=== PATIENT | male | born 1995 | race African-American/Black ===

== ENCOUNTER 2024-07-12 20:59 | Emergency (ER) | payer OTHER, SELFPAY ==
[2024-07-12] VITALS (19 sets, daily range): BP systolic 113–155; BP diastolic 67–105; PULSE 79–96; RESP 16–18; TEMP 36.6; O2SAT 92–97; BMI 42.1
--- OUTSIDE RECORDS SUMMARY | 2024-07-12 21:02 | XMS_ITS | Clinical Summary ---
Author Organization [facility] Address [address] [address] Phone Care Team Providers Care Cash Applications Manager Name Role Phone Elsewhere, Pcp Primary Care Provider Unavailabl e Allergies No known active allergies Social History Tobacco Use Types Packs/Day Years Used Date Smoking Tobacco: Never Assessed Sex and Gender Information Value Date Recorded Sex Assigned at Not on file Legal Sex Male 12:48 PM CDT Gender Identity Not on file Sexual Orientation Not on file Last Filed Vital Signs Vital Sign Reading Time Taken Comments Blood Pressure 107/53 07/03/2017 5:01 PM CDT Pulse 77 07/03/2017 5:01 PM CDT Temperature 37.2 C (98.9 F) 07/03/2017 12:51 PM CDT Respiratory Rate 15 07/03/2017 5:01 PM CDT Oxygen Saturation 99% 07/03/2017 5:01 PM CDT Inhaled Oxygen Concentration - - Weight 127 kg (280 lb) 07/03/2017 12:51 PM CDT Height 188 cm (6' 2) 07/03/2017 12:51 PM CDT Body Mass Index 35.95 07/03/2017 12:51 PM CDT Plan of Treatment Not on file Insurance BCBS OF [facility] OUT OF STATE Care Teams Cash Applications Manager Relationship Specialty Start Date End Date Elsewhere, Pcp PCP - General 12/07/20
--- OUTSIDE RECORDS SUMMARY | 2024-07-12 21:02 | XMS_ITS | Clinical Summary ---
Author Organization [employer] [facility] Address [address] [place] [address] Care Team Providers Care Police Matron Name Role Phone Pcp, No Primary Care Provider Unavailabl e Pcp, No Unavailable Unavailable Allergies No known active allergies Medications No known medications Active Problems Problem Noted Date Diagnosed Date Family history of diabetes mellitus in father Immunizations Immunization Administration Dates Next Due Td (Age >=7 Years) 08/27/2005 Family History Medical History Relation Name Comments Diabetes Father Hypertension Father Diabetes Mother Hypertension Mother Cancer Paternal Grandfather rare ca ncer took his life Diabetes Paternal Grandmother Stroke Paternal Grandmother Relation Name Status Comments Father Alive Mother Alive Paternal Grandfather Paternal Grandmother Social History Tobacco Use Types Packs/Day Years Used Date Smoking Tobacco: Some Days Smokeless Tobacco: Never Tobacco Cessation:Ready to Q uit: Yes; Counseling Given: Yes Comments:maybe 1 every other day. 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 Gender Identity Not on file Sexual Orientation Not on file Obstetrics History Last Filed Vital Signs Vital Sign Reading Time Taken Comments Blood Pressure 103/65 07/01/2021 7:04 AM CDT Pulse 97 07/01/2021 7:04 AM CDT Temperature 36.9 C (98.4 F) 07/01/2021 7:04 AM CDT Respiratory Rate 12 12/13/2018 11:15 AM CDT Oxygen Saturation 97% 07/01/2021 7:04 AM CDT Inhaled Oxygen Concentration - - Weight 150.6 kg (332 lb) 07/01/2021 7:04 AM CDT Height 188 cm (6' 2) 07/01/2021 7:04 AM CDT Body Mass Index 42.63 07/01/2021 7:04 AM CDT Plan of Treatment Health Maintenance Due Date Last Done Comments Tdap 2004 Depression screening for age 12+ 2005 HIV for age 15-65 2008 Hepatitis C screening for ag e 18-79 12/11/2011 Tetanus booster 08/28/2015 08/27/2005 BMI (ht and wt on same day) for age 18+ 07/01/2022 07/01/2021, 12/13/2018, 07/06/2017 COVID-19 vaccine series (2023- season) 2023 Influenza Vaccine (Season Ended) 2024 Pneumococcal series for age 6-49 Aged Out No longer eligible b ased on patient's age to complete this topic Insurance [place] [employer] OF NON-[facility] [address] [place] [id number] Care Teams Police Matron Relationship Specialty Start Date End Date Pcp, No . PCP - General 12/10/18 Pcp, No . 12/10/18
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
[2024-07-12 21:37] LABS: Appearance Urine Clear (Clear); Bilirubin Urine Negative (Negative); Blood Urine Negative (Negative); Color Urine Yellow (Yellow); Glucose Urine Negative (Negative); Ketones Urine Negative (Negative); Leukocyte Esterase Urine Negative (Negative); Nitrite Urine Negative (Negative); Protein Urine Negative (Negative); Specific Gravity Urine 1.025 (1.000-1.030); Urobilinogen Urine 0.2 (0.2-1.0); pH Urine 5.5 (5.0-8.5)
--- OUTSIDE RECORDS SUMMARY | 2024-07-12 21:46 | XMS_ITS | Clinical Summary ---
Author Organization [facility] Address [address] [address] Phone Care Team Providers Care Credit Risk Analytics Manager Name Role Phone Elsewhere, Pcp Primary [...] Treatment Not on file Insurance BCBS OF [facility] OUT OF STATE Care Teams Credit Risk Analytics Manager Relationship Specialty Start Date End Date Elsewhere, Pcp PCP - General 12/07/20
--- OUTSIDE RECORDS SUMMARY | 2024-07-12 21:46 | XMS_ITS | Clinical Summary ---
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 PCP - General 12/10/18 Pcp, No . 12/10/18
[2024-07-12 21:57] LABS: Bacteria Urine Few; Mucus Urine Moderate; RBC Urine 0-2 (0-2); Squamous Epithelial Cell Urine Few (None-Few); WBC Urine 0-2 (0-5)
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
[2024-07-12] MEDS: IBUPROFEN 400 MG TABLET 800 MG PO (22:22)
[2024-07-13 00:02] VITALS: BP 121/62; PULSE 89; RESP 18; O2SAT 95
[2024-07-13 00:05] VITALS: TEMP 36.6
[2024-07-13 00:13] VITALS: BP 130/67; PULSE 95; RESP 18; TEMP 36.6
== END 2024-07-13 00:15 | disposition home or self-care (01) ==
PROVIDERS: Emergency Provider Family Medicine
DX: S16.1XXA Strain of muscle, fascia and tendon at neck level, initial encounter (principal); V43.52XA Car driver injured in collision with other type car in traffic accident, initial encounter; S80.02XA Contusion of left knee, initial encounter
CPT/HCPCS: 72125; 73562; 73650; 81001; 87086; 94761; 99284; 99285; 99291; A9270

== ENCOUNTER 2024-07-28 11:32 | Emergency (ER) | payer OTHER, SELFPAY ==
--- OUTSIDE RECORDS SUMMARY | 2024-07-28 11:34 | XMS_ITS | Clinical Summary ---
Author Organization [facility] Address [address] [address] Phone Care Team Providers Care Supply Chain Business Analyst Name Role Phone Elsewhere, Pcp Primary Care [...] Treatment Not on file Insurance BCBS OF [facility] Commercial Address: [address] [address] [facility] OUT OF STATE Care Teams Supply Chain Business Analyst Relationship Specialty Start Date End Date Elsewhere, Pcp PCP - General 12/07/20
--- OUTSIDE RECORDS SUMMARY | 2024-07-28 11:34 | XMS_ITS | Clinical Summary ---
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 PCP - General 12/10/18 Pcp, No . 12/10/18
[2024-07-28 11:42] VITALS: BP 144/75; PULSE 102; RESP 16; TEMP 37.3; O2SAT 98; BMI 41.7
--- NOTE | 2024-07-28 12:10 | CRLHL7_ITS ---
For Patients: As a result of the Century Cures Act, medical imaging exams and procedure reports are released immediately into your electronic medical record. You may view this report before your referring provider. If you have questions, please contact your health care provider. INDICATION: Peritonsillar abscess TECHNIQUE: CT of the neck soft tissues obtained after intravenous administration of 149 mL Isovue 370 contrast agent. Coronal and sagittal reconstructions are included. COMPARISON: None FINDINGS: Diffuse fullness and striated enhancement of the bilateral palatine tonsils and nasopharyngeal adenoids. No focal/drainable or peripherally enhancing tonsillar/peritonsillar fluid collection. No retropharyngeal edema. Mild oropharyngeal airway narrowing. The nasopharyngeal and laryngeal airway are patent. Bilateral reactive cervical lymphadenopathy, the most pronounced level 2. Included orbits and intracranial structures are unremarkable for technique. No evidence of obstructive paranasal sinus disease or significant mastoid effusion. Major salivary glands and thyroid gland are unremarkable. Major vascular structures of the neck demonstrate expected contrast opacification. No aggressive osseous lesions. No significant spinal canal stenosis. No focal mass or consolidation within the included lung apices. IMPRESSION: 1. Acute tonsillitis/pharyngitis, with reactive cervical lymphadenopathy and mild oropharyngeal airway narrowing. 2. No tonsillar/peritonsillar abscess. Please note that all CT scans at this facility use dose modulation, iterative reconstruction, and/or weight-based dosing when appropriate to reduce radiation dose to as low as reasonably achievable. Dictated by Marzena Degroot MD @ 07/28/2024 1:16:26 PM (Electronically Signed)
--- NOTE | 2024-07-28 12:10 | ED_ITS ---
HPI - General Adult General Chief complaint: Sore Throat Stated complaint: possible strep throat Time Seen by Provider: 07/28/24 11:35 History of Present Illness HPI narrative: this 28-year-old male comes in reporting sore throat for the past couple days. He arrives with a muffled voice. He does not report any fevers. He reports lots of pain when attempting to swallow. He does not have much coughing. Related Data Previous Rx's ?Medication ?Instructions ?Recorded amoxicillin 875 mg-potassium 1 tab PO BID #14 tabs 07/28/24 clavulanate 125 mg tablet ketorolac 10 mg tablet 10 mg PO TID 5 days #15 tabs 07/28/24 Allergies Allergy/AdvReac Type Severity Reaction Status Date / Time No Known Drug Allergies Allergy Verified 07/28/24 13:11 Review of Systems Status of ROS: Reports: 10 or more systems reviewed and unremarkable except as noted in History and below Narrative: Constitutional: No fevers, no weight gain or loss. Eyes: No discharge. No vision changes. HENT: No congestion, no ear pain. Sore throat with muffled voice. Cardiovascular: No chest pain, no palpitations. Respiratory: No shortness of breath, no wheezes, no cough. Gastrointestinal: No abdominal pain, no vomiting, no diarrhea. Genitourinary: No dysuria, no hematuria. Musculoskeletal: Normal range of motion. Skin: No rashes, no pruritis. Neurological: No dizziness, weakness, sensory change, speech change. Endo/Heme/Allergies: No bruising or bleeding. No polydipsia. Pysch: no suicidality, no anxiety, no insomnia. All other systems reviewed and are negative. PFSH PFS Surgical History (Updated 07/26/24 @ 09:35 by Mary Mittal) History of urologic surgery ?Z98.890 - Other specified postprocedural states (ICD-10) Family History (Updated 07/26/24 @ 09:34 by Mary Mittal) Father Diabetes High blood pressure Paternal Grandmother Diabetes Stroke Mother Diabetes Social History How often do you have a drink containing alcohol: never AUDIT-C Alcohol total score: 0 Non-prescribed substance use: denies use Exam Narrative: Exam Narrative: Constitutional: Well-developed, well-nourished, no acute distress. HEENT: Normocephalic, atraumatic. Oropharynx has enlarged tonsils. He has a muffled voice. No obvious trismus. Neck: Normal range of motion. Nontender. Supple. Heart: Regular. No murmurs. Normal rate. Intact distal pulses. Lungs: Clear to auscultation. No chest discomfort. No wheezes, rhonchi, or rales. Abdomen: Normal bowel sounds. Nontender. No rebound tenderness. Genitalia: Deferred. Back: No midline tenderness. Normal range of motion. Extremities: Normal range of motion. No injury. Skin: Intact. No rash. Warm. No erythema or pallor. Neurologic: No altered sensation. No weakness. Alert and oriented. Psychiatric: No suicidality. No anxiety or depression. No insomnia. Nursing notes and vitals signs are reviewed. Const: Vital Signs, click to edit/add: Vital Signs - 24 hr 07/28/24 11:42 Temperature 99.1 F Pulse Rate [Pulse Oximeter] 102 H Respiratory Rate 16 Blood Pressure [Ri ght Upper Arm] 144/75 H Pulse Oximetry 98 Oxygen Delivery Me thod Room Air Course Vital Signs Vital signs: Initial Vital Signs Temperature 99.1 F 07/28/24 11:42 Temperature Source Oral 07/28/24 11:42 Pulse Rate 102 H 07/28/24 11:42 Respiratory Rate 16 07/28/24 11:42 Blood Pressure 144/75 H 07/28/24 11:42 Blood Pressure Mean 98 07/28/24 11:42 Pulse Oximetry 98 07/28/24 11:42 Oxygen Delivery Method Room Air 07/28/24 11:42 Vital Signs Temperature 99.1 F 07/28/24 11:42 Pulse Rate 102 H 07/28/24 11:42 Respiratory Rate 16 07/28/24 11:42 Blood Pressure 144/75 H 07/28/24 11:42 Pulse Oximetry 98 07/28/24 11:42 Oxygen Delivery Method Room Air 07/28/24 11:42 Temperature 99.1 F 07/28/24 11:42 Pulse Rate 102 H 07/28/24 11:42 Respiratory Rate 16 07/28/24 11:42 Blood Pressure 144/75 H 07/28/24 11:42 Pulse Oximetry 98 07/28/24 11:42 Oxygen Delivery Method Room Air 07/28/24 11:42 Medications Administered Medications: Discontinued Medications Generic Name Dose Route Start Last Admin Trade Name Seema PRN Reason Stop Dose Admin Hydromorphone HCl 0.5 mg 07/28/24 12:27 07/28/24 12:40 Hydromorphone 0.5 Mg/0.5 Ml Inj IVP 07/28/24 12:28 0.5 mg ONCE ONE Administration Ondansetron HCl 4 mg 07/28/24 12:27 07/28/24 12:37 Ondansetron 2 Mg/Ml Inj IVP 07/28/24 12:28 4 mg ONCE ONE Administration Medical Decision Making MDM Narrative Medical decision making narrative: This patient comes in with sore throat for the past 2 or 3 days. He does have muffled voice but does not seem to have any trismus. He has not had any fevers. I did elect to do a CT scan to rule out presence of abscess. CT does not show any evidence of abscess but there is bilateral tonsillar hypertrophy and mild narrowing of the airway. his white count returns elevated and he is positive for strep infection on pharyngeal swab. The patient receive IV doses of Dilaudid 0.5 mg for pain relief and then a g of Rocephin and Solu-Medrol 125 mg intravenously. He is okay to be discharged home and instructed regarding signs and symptoms that would indicate need for return and re-evaluation. A prescription for Augmentin and Toradol is provided. Lab Data Labs: Lab Results 07/28/24 07/28/24 Range/Units 11:38 12:15 WBC 17.06 H (4.50-11.00) K/uL RBC 5.79 (4.30-5.90) m/uL Hgb 15.6 (13.5-17.5) gm/dL Hct 47.9 (37.0-53.0) % MCV 83 (80-100) fL MCH 27 (26-34) pg MCHC 33 (32-36) gm/dL RDW Coeff of Jorge 13.5 (11.5-15.5) % Plt Count 278 (140-440) K/uL Neut % (Auto) 78.8 H (42.0-72.0) % Lymph % (Auto) 12.1 L (20-44) % [place] % (Auto) 8.0 (0.0-11.0) % Eos % (Auto) 0.8 (0.0-7.0) % Baso % (Auto) 0.1 (0.0-3.0) % Neut # (Auto) 13.40 H (1.7-7.0) K/uL Lymph # (Auto) 2.10 (0.90-2.90) K/uL [place] # (Auto) 1.40 H (0.00-0.90) K/UL Eos # (Auto) 0.10 (0.00-0.50) K/uL Baso # (Auto) 0.00 (0.00-0.30) K/uL Abs Immat Gran (auto) 0.00 (0.00-0.30) K/uL Imm/Tot Granulo (auto) 0.2 % SARS-CoV-2 (PCR) Negative SARS-CoV-2 (Negative) Influenza Type A (PCR) Negative PCR FLU A (Negative) Influenza Type B (PCR) Negative PCR FLU B (Negative) RSV (PCR) Negative PCR RSV (Negative) Group A Strep DNA DETECTED A (Not Detectd) Imaging Data CT Soft Tissue Neck: Radiologist's impression: 1. Acute tonsillitis/pharyngitis, with reactive cervical lymphadenopathy and mild oropharyngeal airway narrowing. 2. No tonsillar/peritonsillar abscess. Discharge Plan Discharge Clinical Impression: Strep pharyngitis Patient Disposition: Home, Self-Care Condition: Stable Additional Instructions: Take medication as prescribed and needed. Follow up with MD or return if worsening. Prescriptions: New ketorolac 10 mg tablet 10 mg PO TID 5 Days Qty: 15 0RF amoxicillin-pot clavulanate 875-125 mg tablet 1 tab PO BID Qty: 14 0RF Follow Up/Referrals: Provider,Not a Local [Primary Care Provider] - Stand Alone Forms: [email or web address] Info Instructions
[2024-07-28 12:23] LABS: Basophils Percent Auto 0.1 % (0.0-3.0); Eosinophils Percent Auto 0.8 % (0.0-7.0); Hematocrit 47.9 % (37.0-53.0); Hemoglobin* 15.6 gm/dL (13.5-17.5); Immature Granulocytes Pct Auto 0.2 %; Lymphocytes Percent Auto 12.1 % (20-44); Mean Corpuscular HGB Conc 33 gm/dL (32-36); Mean Corpuscular Hemoglobin 27 pg (26-34); Mean Corpuscular Volume 83 fL (80-100); Neutrophils Percent Auto 78.8 % (42.0-72.0); Platelet Count* 278 K/uL (140-440); RDW Coefficient of Variation % 13.5 % (11.5-15.5); Red Blood Count 5.79 m/uL (4.30-5.90); White Blood Count* 17.06 K/uL (4.50-11.00)
[2024-07-28 12:26] LABS: Slide Review Reflex No
[2024-07-28 12:26] LABS: Strep A DNA Probe* DETECTED (Not Detectd)
[2024-07-28] MEDS: ONDANSETRON 2 MG/ML inj 4 MG IVP (12:37)
[2024-07-28] MEDS: HYDROmorphone 0.5 mg/0.5 ml inj IVP (12:40)
[2024-07-28 12:44] LABS: PCR FLU A Negative PCR FLU A (Negative); PCR FLU B Negative PCR FLU B (Negative); PCR RSV Negative PCR RSV (Negative); SARS PCR* Negative SARS-CoV-2 (Negative)
[2024-07-28] MEDS: METHYLPREDNISOLONE SOD SUCC 62.5 MG/ML (125) 125 MG IVP (13:37)
[2024-07-28] MEDS: cefTRIAXone 1 GM in 0.9 % SODIUM CHLORIDE Mini-bag 100 ML IVPB (13:42)
[2024-07-28 13:45] VITALS: BP 129/70; PULSE 93; RESP 18; TEMP 37.1; O2SAT 96
--- OUTSIDE RECORDS SUMMARY | 2024-07-28 19:46 | XMS_ITS | Clinical Summary ---
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 * Guarantor: [employer] Account Type Relation to Patient Date of Phone Billing Address [employer] Employer [address] [place] [address] [phone] [place] [phone] Care Teams Apple Turner Relationship Specialty Start Date End Date Pcp, No . PCP - General 12/10/18 Pcp, No . 12/10/18
--- OUTSIDE RECORDS SUMMARY | 2024-07-28 19:46 | XMS_ITS | Clinical Summary ---
Author Organization [facility] Address [address] [id number] Phone Care Team Providers Care Pharmacist Manager Name Role Phone Elsewhere, Pcp Primary [...] Treatment Not on file Insurance [employer] [facility] Commercial Address: [address] [id number] [facility] Care Teams Pharmacist Manager Relationship Specialty Start Date End Date Elsewhere, Pcp PCP - General 12/07/20
== END 2024-07-28 14:20 | disposition home or self-care (01) ==
PROVIDERS: Emergency Provider Emergency Medicine Emergency Medical Services
DX: J02.0 Streptococcal pharyngitis (principal); R05.9 Cough, unspecified
CPT/HCPCS: 36415; 70491; 85025; 87631; 87651; 96365; 96375; 99284; 99285; J0696; J1171; J2405; J2919; Q9967